=== PATIENT | male | born 1980 | race Caucasian/White ===

== ENCOUNTER 2017-04-25 09:50 | Emergency (ER) | payer BC, OTHER ==
--- NOTE | 2017-04-25 09:56 | PDOC ---
History of Present Illness - General Chief Complaint: Pain Stated Complaint: R/O HERNIA Time Seen by Provider: 04/25/17 09:55 History Source: Patient - History of Present Illness Initial Comments: 04/25/17 09:59 Patient is a 36 y.o. male with no reported PMH who presents after feeling a "pop " in his LL abdomen while lifting a 40 pound bag over his head. Patient denies any associated nausea, vomiting, syncopal episode and notes increased pain with ambulation. Patient states the pain has been constant and he initially hope it would be self-resolving, however once patient realized pain was not abating he decided to come to the Emergency Department. Past History - Past Medical History Allergies/Adverse Reactions: Allergies Allergy/AdvReac Type Severity Reaction Status Date / Time No Known Allergies Allergy Verified 04/25/17 10:05 Home Medications: Ambulatory Orders NK [No Known Home Medication] 04/25/17 Review of Systems - Review of Systems Constitutional: No: Chills, Fever Respiratory: No: Shortness of Breath Cardiac (ROS): No: Chest Pain ABD/GI: Yes: Other (LLQ "pulling" abdominal pain) All Other Systems: Reviewed and Negative *Physical Exam - Physical Exam General Appearance: Yes: Nourished, Appropriately Dressed Respiratory/Chest: positive: Lungs Clear Cardiovascular: positive: S1, S2 Gastrointestinal/Abdominal: positive: Soft, Mass (LLQ mass in L adenexa) Neurologic: positive: Fully Oriented, Alert Medical Decision Making - Medical Decision Making 04/25/17 14:51 Patient is a 36 y.o. male who presents c/o of LLQ abdominal pain following lifting a heavy object. Initial DDx is abdominal hernia vs. muscle strain. PLAN: 1. CT abdomen w. oral contrast 04/25/17 15:00 CT shows no hematoma, fluid collection or hernia. Patient to be discharged with return precautions (vomiting, severe pain) and OTC pain control as well instruction to follow up with his PCP. *DC/Admit/Observation/Transfer Diagnosis at time of Disposition: Muscle strain - Discharge Dispostion Disposition: HOME Condition at time of disposition: Good Admit: No - Referrals Referrals: Jacob Resendiz [Primary Care Provider] - - Patient Instructions Printed Discharge Instructions: Abdominal Hernia, DI for Muscle Strain Additional Instructions: Please return to the Emergency Department should you experience severe pain, nausea or vomiting. Please follow up with your PCP should your pain persist a copy of your CT scan has been provided to you, please bring this to any follow up appointments.
[2017-04-25 10:08] VITALS: BP 111/67; PULSE 58; TEMP 97.8; BMI 24.0
--- NOTE | 2017-04-25 10:39 | PDOC ---
Attending Attestation - Resident Resident Name: Mary Kay Reynolds - ED Attending Attestation I have performed the following: I have examined & evaluated the patient, The case was reviewed & discussed with the resident, I agree w/resident's findings & plan, Exceptions are as noted - HPI HPI: 04/25/17 11:01 36y M no pmhx presents with LLQ pain. The pt states he was lifting/throwing a 40lb bag and felt a popping/pain in the LLQ. The pt states it hurts more when he is walking around/moving, but there is a small soft, minimally tender mass in the l adnexa, but unable to really palpate a defect in the abdominal wall. Will obtain CT w. contrast to see if there is a hernia there vs. a muscle strain. No obstructive sypmtoms - Physicial Exam PE: 04/25/17 19:44 see above - Medical Decision Making 04/25/17 16:44 ct neg for hernia suspect likely muscle strain will dc with pmd fu return precautions were discussed
== END 2017-04-25 15:49 | disposition home or self-care (01) ==
LOC: JER 09:50
DX: S39.011A Strain of muscle, fascia and tendon of abdomen, initial encounter (principal); X50.0XXA Overexertion from strenuous movement or load, initial encounter; Y93.89 Activity, other specified; Y92.69 Other specified industrial and construction area as the place of occurrence of the external cause; Y99.0 Civilian activity done for income or pay
CPT/HCPCS: 74176-TC; 99282-25

== ENCOUNTER 2017-12-26 10:06 | Emergency (ER) | payer OTHER ==
[2017-12-26 10:22] VITALS: BP 110/75; PULSE 64; TEMP 98.2; BMI 24.0
[2017-12-26] MEDS ORDERED: KETOROLAC TROMETHAMINE 60 MG/2 ML VIAL IM ONE (10:25)
--- NOTE | 2017-12-26 10:32 | PDOC ---
History of Present Illness - General Chief Complaint: Injury Stated Complaint: BACK PAIN Time Seen by Provider: 12/26/17 10:24 History Source: Patient Exam Limitations: No Limitations - History of Present Illness Initial Comments: 12/26/17 10:31 37 yr male with c/o "pulled lower back" today at work. 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 Pt has neg numbness or tingling, neg weakness in the legs. Past History - Past Medical History Allergies/Adverse Reactions: Allergies Allergy/AdvReac Type Severity Reaction Status Date / Time No Known Allergies Allergy Verified 12/26/17 10:20 Home Medications: Ambulatory Orders NK [No Known Home Medication] 04/25/17 COPD: No DVT: No Dementia: No - Immunization History Immunization Up to Date: Yes - Suicide/Smoking/Psychosocial Hx Smoking History: Never smoked Information on smoking cessation initiated: No Hx Alcohol Use: No Drug/Substance Use Hx: No Substance Use Type: None *Physical Exam - Vital Signs Last Vital Signs Temp Pulse Resp BP Pulse Ox 98.2 F 64 17 110/75 100 12/26/17 10:20 12/26/17 10:20 12/26/17 10:20 12/26/17 10:20 12/26/17 10:20 - Physical Exam General Appearance: Yes: Nourished, Appropriately Dressed HEENT: positive: EOMI, [place] Respiratory/Chest: positive: Lungs Clear, Normal Breath Sounds Cardiovascular: positive: Regular Rhythm, Regular Rate Gastrointestinal/Abdominal: positive: Normal Bowel Sounds, Soft. negative: Tender Rectal Exam: positive: deferred Lymphatic: negative: Adenopathy Musculoskeletal: positive: Normal Inspection, Vertebral Tenderness (lumbar spine ) Extremity: positive: Normal Capillary Refill, Normal Inspection, Normal Range of Motion, Other (neg SLR bilaterally) Integumentary: positive: Normal Color, Dry, Warm. negative: Swelling Neurologic: positive: Fully Oriented, Alert, Normal Mood/Affect, Normal Response , Motor Strength 5/5. 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 neg saddle anesthesia neg bowel or bladder dysfunction neg leg weakness or numbness neg previous injury will give toradol now lumbar spine xray as pt has point tendereness *DC/Admit/Observation/Transfer Diagnosis at time of Disposition: Muscle strain - Discharge Dispostion Disposition: HOME Condition at time of disposition: Good - Referrals Referrals: Jacob Resendiz [Primary Care Provider] - Yuniel Mathis MD [Staff Physician] - - Patient Instructions Additional Instructions: apply ice every 2hrs for 15 minutes then alternate with heat every 3hrs for 20 minutes take naprosyn as directed for pain follow with employee health for clearance to return to work any worsening pain return to the ER - Post Discharge Activity Forms/Work/School Notes: Back to Work
[2017-12-26] MEDS ORDERED: KETOROLAC TROMETHAMINE 60 MG/2 ML VIAL ONE (10:35)
== END 2017-12-26 11:19 | disposition home or self-care (01) ==
LOC: JERFT 10:06
PROC: 3E0233Z Introduction of Anti-inflammatory into Muscle, Percutaneous Approach (ICD-10-PCS; principal; 2017-12-26)
DX: S39.012A Strain of muscle, fascia and tendon of lower back, initial encounter (principal); X50.0XXA Overexertion from strenuous movement or load, initial encounter; Y93.89 Activity, other specified; Y92.818 Other transport vehicle as the place of occurrence of the external cause; Y99.0 Civilian activity done for income or pay
CPT/HCPCS: 72100-TC-FY; 99281-25

== ENCOUNTER 2022-11-17 09:11 | Emergency (ER) | payer OTHER ==
[2022-11-17 09:22] VITALS: BP 110/70; PULSE 71; RESP 17; TEMP 97.9; BMI 23.1
[2022-11-17] MEDS ORDERED: IBUPROFEN 600 MG TABLET (FP) PO ONE ×2 (10:39)
== END 2022-11-17 10:49 | disposition home or self-care (01) ==
LOC: JERFT 09:11
DX: S93.401A Sprain of unspecified ligament of right ankle, initial encounter (principal); X50.0XXA Overexertion from strenuous movement or load, initial encounter
CPT/HCPCS: 73610-TC-RT-FY; 99283-25

== ENCOUNTER 2023-11-02 22:09 | Emergency (ER) | payer OTHER ==
[2023-11-02 22:14] VITALS: BP 106/84; PULSE 70; RESP 18; TEMP 98; BMI 23.7
[2023-11-02] MEDS ORDERED: IBUPROFEN 400 MG TABLET (FP) PO ONE (23:55)
[2023-11-02] MEDS: IBUPROFEN 600 MG TABLET (FP) PO ONE (23:59)
== END 2023-11-03 00:21 | disposition home or self-care (01) ==
LOC: JERFT 22:09
DX: M25.531 Pain in right wrist (principal); X50.1XXA Overexertion from prolonged static or awkward postures, initial encounter; Y99.0 Civilian activity done for income or pay
CPT/HCPCS: 73110-TC-RT-FY; 99283-25